=== PATIENT | female | born 1955 | race Caucasian/White ===

== ENCOUNTER 2016-12-03 16:37 | Emergency (ER) | payer OTHER ==
[2016-12-03 17:00] VITALS: BP 130/78; PULSE 76; RESP 16; TEMP 96.7; O2SAT 96
[2016-12-03] MEDS ORDERED: LIDOCAINE HCL 1% MPF SOL ONE (17:11)
[2016-12-03] MEDS ORDERED: LIDOCAINE HCL 1% MDV SOL SC ONE (17:13)
[2016-12-03] MEDS ORDERED: BACITRACIN 500 U/GM OIN TOP ONE ×2 (17:43→17:46)
== END 2016-12-03 17:52 | disposition home or self-care (01) | DRG 605 ==
LOC: ED 16:37
DX: S61.212A Laceration without foreign body of right middle finger without damage to nail, initial encounter (principal); W26.8XXA Contact with other sharp object(s), not elsewhere classified, initial encounter; Y99.0 Civilian activity done for income or pay
CPT/HCPCS: 99284

== ENCOUNTER 2018-10-29 12:46 | Outpatient (CLI) | payer BC, OTHER ==
[2016-12-03 17:00] VITALS: O2SAT 96
== END 2018-10-29 12:47 | disposition home or self-care (01) ==
LOC: CONVCARE 12:46
PROVIDERS: ATTEND Orthopaedic Surgery
DX: M25.562 Pain in left knee (principal)
CPT/HCPCS: 73560

== ENCOUNTER 2018-12-03 07:54 | Day surgery (SDC) | payer BC ==
[2018-12-03] MEDS ORDERED: LIDOCAINE HCL 1% MPF 30 SOL ONE (08:07)
[2018-12-03] MEDS ORDERED: PROPOFOL 500 MG/50 ML EMU IV ONE (08:07)
[2018-12-03 09:24] VITALS: BP 119/68; PULSE 61; RESP 16; TEMP 97.6; O2SAT 100
== END 2018-12-03 09:40 | disposition home or self-care (01) ==
LOC: SURG 07:54
PROVIDERS: ATTEND Surgery
DX: Z12.11 Encounter for screening for malignant neoplasm of colon (principal); K57.32 Diverticulitis of large intestine without perforation or abscess without bleeding
CPT/HCPCS: J2001; J2704

== ENCOUNTER 2018-12-19 09:58 | Outpatient (CLI) | payer BC | END 2018-12-19 09:59 | disposition home or self-care (01) | LOC: CONVCARE 09:59 ==